=== PATIENT | female | born 1985 | race Caucasian/White ===

== ENCOUNTER 2020-07-26 13:07 | Outpatient (REF) | payer OTHER, SELFPAY ==
--- NOTE | 2020-07-26 11:00 | PAPFT_PTH ---
PATIENT: Page Cruz LOC: [facility] U#:[id number] AGE/SX: 35/F ROOM: RE07/26/[address]: MOHAMUD Strickland : 1985 BED: DIS: 07/26/2020 SPEC #: [id number] RECD: 07/26/20 17:57 STATUS: JEAN PAUL RERolando #: [id number] FLETCHER: 07/26/20 11:[address]: Concepción Nieto DEPT: [facility] Cytology RECD BY: Hillary Medina ENTERED: 07/26/20 17:58 SP TYPE: PAPFT OTHR DR: Neeraj Warren Tissues: 1 - CX/ENDOCX FOR PAP SMEARS Procedures: PAP THIN PREP/UVM Screening HPV DNA PROBE Comments: [id number]
--- OUTSIDE RECORDS SUMMARY | 2020-07-26 13:12 | XMS_ITS | Encounter Summary ---
:1985 Author Care Team Providers Name Role Phone Neeraj Warren Primary Care Provider [phone] Km Vital MD General Surgeon [phone] Reason for Visit None recorded. Assessment and Plan 1. Achalasia of esophagus 35 female with fairly extensiv e history of achalasia. She has kind of lost follow-up with GI because she is done qu ite well for the last 3 years. Given the new onset of recurrent symptoms, I think it is reasonable to proceed with evaluation. We will plan for upper endoscopy with possi ble balloon dilation. Depending on the findings, I will consider ordering a bar ium swallow as well. It is unclear if the achalasia has worsened and is causing th e symptoms, or if the dilated esophageal sphincter is allowing for worsening refl ux. Patient does admit that her weight gain is probably contributing to her symptoms . She is probably correct. I encouraged her to continue with her diet plan. We will go ahead and get her scheduled for upper endoscopy with possible balloon dilation . We discussed the procedure in detail. She did express that in the past she struggl ed with conscious sedation procedures and has done much better with anesthesia. With t hat history, we will request that anesthesia provide sedation. Patient did have quest ions about the need to protect the airway and I suggested she discuss that with anesth esia. We discussed the procedure in detail. We discussed the risk of bleeding and es ophageal perforation. She signed informed consent here in the office. We will go a head and get her scheduled sometime next week. Thank you for the consultation. 2. Gastroesophageal reflux disea se without esophagitis Discussion Note: None recorded.Patient educational handouts: No information available. Plan of Care Reminders Provider Appointments Cpe 40 03/10/2021 Neeraj garza, PIERCING SPECIALIST 12:40PM Lab None ? ? recorded. Referral None ? ? recorded. Procedures None ? ? recorded. Surgeries None ? ? recorded. Imaging None ? ? recorded. Medications Name Start Date ? ? Carafate 100 mg/mL oral suspension ? Take 10 mL 4 times a day by oral route as needed. intrauterine device (IUD) ? ketorolac 60 mg/2 mL intramuscular solution ? Inject 2 mL every day by intramuscular route for 1 da y. nexium 40 mg pack ? Nexium Packet 40 mg granules delayed release for susp ? Twice daily ondansetron 4 mg disintegrating tablet ? Place 1 tablet every 6 hours by translingual route as needed. zolpidem 10 mg tablet ? TAKE ONE TABLET BY MOUTH AT BEDTIME zolpidem tartrate 10 mg tabs ? Medications Administered None recorded. Vitals Height Weight BMI Blood Pressure 5 ft 10 in 247 lbs 6.4 oz 35.5 kg/m2 118/84 mm[Hg] Results Lab Results None recorded. Allergies Code Code System Name Reaction Severity Onset 2670 RxNorm Codeine Hives Moderate to ? Severe 9628799 RxNorm Kiwi Facial Swelling Severe ? Penicillins Hives Moderate to ? Severe Problems Name Status Onset Date Source ? Intermittent Palpitations Active 09/02/2017 ? Laceration of Finger of Right Hand Active 10/15/2017 ? Lumbosacral Radiculopathy Active 02/26/2020 ? Achalasia Active 05/29/2020 ? Localized Adiposity Active ? History Insomnia Active ? History Hernia of Abdominal Cavity Active ? Histo ry Urinary Tract Infectious Disease Active ? History On Examination - Breast Lump-lower Active ? History Out-quad Acute Vaginitis Active ? History Hip Pain Active ? History Disorder of Intervertebral Disc of Active ? History Thoracic Spine Backache Active ? History Dizziness and Giddiness Active ? History Palpitations Active ? History Dysphagia Active ? History Genitourinary Symptoms Active ? History Adult Health Examination Active ? History History and Physical Examination, Active ? History Pre-employment Tuberculosis Screening Active ? History Venereal Disease Screening Active ? Histo ry Digestive System Finding Active ? History Finding of Esophagus Active ? History Juliana Infection of Genital Region Active ? History Procedure by Method Active ? History Procedures Date Name Performed by ? 06/03/2020 Endoscopy of Upper Gastrointestinal Info rmation not available Tract and Dilation of Esophageal Stricture 06/03/2020 EGD/Endoscopy Information not avai lable Notes: achalasia strictur e at GE junction w/ ballon dilation to 18 mm, gastric polyps, gastritis, esophagitis. 03/05/10 dilation in esophagus.12/16/16 achalasia 03/27/2010 03/05/2010 esophagus appears aperistaltic and dilated. 09/19/08 dilated esophagus with no evidence of peristalsis. 03/01/2014 Laminotomy Single Lumbar Information not available 03/01/2008 Cholecystectomy Information not avai lable ? Laparoscopic Sleeve Gastrectomy Informat ion not available ? Delivery Information not avai lable Vaccine List Vaccine Type Hep B, adult 11/26/2015?1 mL influenza, injectable, quadrivalent 11/30/2017 11/30/2019 influenza, injectable, quadrivalent, pre servative free 12/15/2016 influenza, seasonal, injectable 12/04/2015?0.5 mL Tdap 10/13/2017?0.5 mL Notes: Hepatitis B titer positiv e 01/02/2016; MMRV titers positive 11/12/2015 Social History Tobacco Smoking Status Former Smoker Notes: smoked for approx 10 years Illicit drug use? N Alcohol intake Occasional Use IV drugs? N Smokeless Tobacco Status Never used smokeless tobacco Most Recent Tobacco Use 01/13/2018 Screening E-cigarette/Vape Status Never used electronic cigarettes Advance directive N Currently or any N chance of current ? Any marijuana use? N Last menstrual period? 04/30/2020 Any Vapor tobacco use? N Tobacco smoke exposure N Functional Status Unknown. Past Encounters 05/30/2020 Achalasia of Esophagus; Gastroesophageal Reflux Disease without Esophagitis Km Vital MD: [address] [place] [address] Dr thomas, [place] [address], Ph. History of Present Illness Note: <p>Patient is a 35-year-old woman who was sent over after recent emergency room visit. She is a pretty significant history of esophageal dysfunction. About 10 years ago she was diagnosed with achalasia. At the time she weighed about 400 pounds. She underwent a combined sleeve gastrectomy and Heller myotomy. She persistently had difficulty eating on and off for many years. For a few months after the surgery she actually had a Dobbhoff feeding tube. Her weight got down to 150 pounds. In 2018 she had upper endoscopy with dilation. For whatever reason the seem to make a big difference and she has been able to eat pretty freely since then. Unfortunately she has gained almost 100 pounds. She does report that in the last few weeks she is managed to lose 12 pounds and is encouraged by this. Also over the last few weeks to months she has had recurrence of some of her symptoms. She is having a lot of epigastric pain, particularly with swallowing or eating. She feels like she is having saliva and gastric juices pooling in her esophagus. Some nights she actually has to cough stuff up. She feelslike she is getting food sitting in the distal esophagus again. She is sticking to a liquid and softdiet and that makes things tolerable. She has not had to regurgitate or vomit any undigested food asof yet. She has not had upper endoscopy since 2018. In our system it seems that she had a barium swallow study in 2011 and 2017.
</p> Review of Systems None recorded. Physical Exam ? [facility] General Surgery Exam Reported By: Patient Constitutional: General Appearance: healthy- appearing, obese. Level of Distress: no acute distress. Ambulation: ambulating normally Head: Head: normocephalic, atrauma tic Neck: Neck: supple, no masses Cardiovascular: Heart Auscultation: regular rate and rhythm Lungs: Respiratory effort: no dyspn ea, no use of accessory muscles. Auscultation: breath sounds normal Abdomen: Inspection and Palpation: so ft, non-distended, no tenderness Musculoskeletal:: Extremities: no edema. Joint s, Bones, and Muscles: movement of all extremities Neurologic: Cranial Nerves: grossly inta ct Psychiatric: Mental Status: active and al ert, normal mood, normal affect
--- OUTSIDE RECORDS SUMMARY | 2020-07-26 13:12 | XMS_ITS ---
:1985 Author Care Team Providers Name Role Phone REINA DICKEY Primary Care Provider [phone] KM ESCOBAR MD General Surgeon [phone] Allergies Code Code System Name Reaction Severity Status Onset 2670 RxNorm Codeine Hives Moderate to Active ? Severe 5138041 RxNorm Kiwi Facial Severe Active ? Swelling Penicillins Hives Moderate to Active ? Severe Medications Name Status Start Date Stop Date ? ? B Complex 100 100 mg-2 mg-100 mg-2mg-2mg/mL injectable solut ion Completed 09/12/2015 09/28/2016 1 (one) Injectable Injectable: weekly boric acid (bulk) powder Completed 08/12/2016 017 600 milligram milligram: nightly for 14 days then as needed jessica ly Carafate 100 mg/mL oral suspension Active ? Not available Take 10 mL 4 times a day by oral route as needed. Celebrex 100 mg capsule Completed 05/30/2013 04/06/19 15 2 (two) Capsule: qam - every morning clindamycin HCl 300 mg capsule Completed ? 0 08/15/2019 cyclobenzaprine 10 mg tablet Completed 05/29/2013 1 (one) Tablet Tablet: qhs - at bedtime cyclobenzaprine 5 mg tablet Completed ? 12/01 Diflucan 150 mg tablet Completed 07/14/2016 7 1 (one) Tablet: weekly ferrous sulfate 325 mg (65 mg iron) tablet,delayed release Compl eted 08/09/2013 04/06/2014 1 (one) Tablet Tablet DR: bid - twice daily intrauterine device (IUD) Active ? Not av ailable Iron (ferrous sulfate) 325 mg (65 mg iron) tablet Completed 05/12/2013 05/12/2013 1 Tablet: bid - twice daily ketorolac 60 mg/2 mL intramuscular solution Active ? Not available Inject 2 mL every day by intramuscular route for 1 day. Lidocaine Viscous 2 % mucosal solution Completed 4 04/06/2014 10 ml : every 4 hours as needed Macrobid 100 mg capsule Completed 10/25/2014 10/26/19 15 1 (one) Capsule: bid - twice daily nexium 40 mg pack Active ? Not available Nexium Packet 40 mg granules Active ? Not available delayed release for susp nitroglycerin 0.4 mg Active ? Not availab le sublingual tablet omeprazole 40 mg capsule,delayed release Completed 014 04/06/[address]: bid - twice daily ondansetron 4 mg disintegrating tablet Active ? Not available Place 1 tablet every 6 hours by translingual route as needed. Percocet 10 mg-325 mg tablet Completed 06/12/201409/2014 1 Tablet Tablet: every 6 hours as needed for pain Percocet 5 mg-325 mg tablet Completed 04/19/201404/29 1 (one) Tablet: oral four times per day as needed for pain phenazopyridine 200 mg tablet Completed ? TAKE ONE TABLET BY MOUTH THREE TIMES A DAY FOR 2 DAYS prednisone 10 mg tablet Completed ? 03/08/19 21 TAKE 5 TABLETS ORALLY FOR 1 DAY 4 TABL ETS FOR 1 DAY 3 TABLETS FOR 1 DAY 2 TABLETS FOR 1 DAY 1 TABLET FOR 1 DAY sulfamethoxazole 200 Active ? Not availab le mg-trimethoprim 40 mg/5 mL oral suspension sulfamethoxazole 800 mg-trimethoprim 160 mg tablet Completed ? 02/26/2020 TAKE ONE TABLET BY MOUTH TWICE A DAY FOR 5 DAYS sulfamethoxazole/trimethoprim Completed ? ds 800-160 mg tabs trazodone 50 mg tablet Completed 08/14/2014 6 1 (one) Tablet: at bedtime as needed for sleep Ultram 50 mg tablet Completed 08/25/2013 10/26/2013 1 (one) Tablet Tablet: every six hours as needed for breakthrou gh pain. Venofer 200 mg iron/10 mL intravenous solution Completed 0 09/12/2015 07/14/2016 1 (one) Solution Solution: weekly zolpidem 10 mg tablet Active ? Not availa ble TAKE ONE TABLET BY MOUTH AT BEDTIME zolpidem tartrate 10 mg tabs Active ? Not available Problems Name Status Onset Date Source ? Intermittent Palpitations Active 09/02/2017 ? Laceration of Finger of Right Hand Active 10/15/2017 ? Lumbosacral Radiculopathy Active 02/26/2020 ? Achalasia Active 05/29/2020 ? Localized Adiposity Active ? History Iron Deficiency Anemia Unknown ? History Insomnia Active ? History Hernia [...] available ? Delivery Information not avai lable 09/02/2017 Electrocardiogram [facility] [address] [place] [address] (Work Place) 09/02/2017 Electrocardiogram [facility] (Internal) [address] [place] [address] (Work Place) 08/15/2019 XR, Lumbosacral Spine, 2 or 3 View [facility] Radiology (Internal) [address] [place] [address] (Work Place) 03/08/2020 MRI, Lumbar Spine, W/o Contrast [facility] (Imaging) [address] [place] [address] (Work Place) 06/06/2020 Barium Swallow Study [facility] (Imaging) [address] [place] [address] (Work Place) Results Lab Results Date Name Specimen Result Interpretation Description Value Range Status Address ? 06/03/2020 Pathology Study TISS ? Report (see below) ? Final [facility] (Internal) : [address] 05/29/2020 CBC W/ Auto BLD ? Wbc 8.5 10*3/uL 5.0-10 Fin al [place] Diff .0 [facility] 10*3/u Hospital L ab L (Internal) : [address] t ? ? BLD ? Rbc 4.77 4.10-5 Final [place] 10*6/uL .30 [facility] 10*6/u Hospital L ab L (Internal) : [address] ? ? BLD Low Hgb 10.5 g/dL 12.0-1 Final [place] 6.0 Country g/dL Hospital L ab (Internal) : [address] t ? ? BLD Low Hct 34.5 % 37.0-4 Final [place] 7.0 % [facility] (Internal) : [address] ? ? BLD Low Mcv 72.3 fL 80.0-9 Final [place] 6.0 fL [facility] (Internal) : [address] t ? ? BLD Low Mch 22.0 pg 26.0-3 Final [place] 2.0 pg [facility] L [facility] (Internal) : [address] t ? ? BLD Low Mchc 30.4 g/dL 31.0-3 Final [place] 5.0 [facility] g/dL Hospital L ab (Internal) : [address] ? ? BLD High Rdw 16.0 % 11.5-1 Final [place] 4.5 % [facility] (Internal) : [address] ? ? BLD ? Plt 354 10*3/uL 130-45 Final [place] 0 [facility] 10*3/u Hospital L ab L (Internal) : [address] ? ? BLD ? Anc 5.57 ? Final [facility] 10*3/uL [facility] (Internal[facility] : [address] ? ? BLD ? Nlr 2.99 0.00-3 Final [facility] .20 [facility] (Internal) : [address] ? ? BLD ? Neutro 65.6 % 40.0-7 Final [facility] 5.0 % [facility] (Internal) : [address], [place] ? ? BLD ? Lymph 21.9 % 20.0-5 Final [facility] 0.0 % [facility] (Internal) : [address] ? ? BLD ? [place] 8.1 % 2.0-10 Final [facility] .0 % [facility] (Internal) : [address], [place] ? ? BLD ? Eos 3.5 % 1.0-6. Final [facility] 0 % [facility] (Internal[facility] : [address] ? ? BLD ? Baso 0.7 % 0.0-1. Final [facility] 0 % [facility] (Internal) : [address] ? ? BLD ? Ig 0.2 % 0.0-0. Final [facility] 9 % [facility] (Internal) : [address] t 05/29/2020 CMP, Serum or S ? g/r 91 mg/dL 74-106 Olga l [facility] Plasma mg/dL [facility] (Internal[facility] : [address] ? ? S ? Bun 9 mg/dL 7-17 Final [facility] mg/dL [facility] (Internal) : [address] ? ? S ? Crea 0.70 mg/dL 0.52-1 Final [facility] .04 [facility] mg/dL Hospital L ab (Internal) : [address] ? ? S ? Ca 9.5 mg/dL 8.4-10 Final [facility] .2 [facility] mg/dL Hospital L ab (Internal) : [address] ? ? S ? Na 139 mmol/L 137-14 Final [facility] 5 [facility] mmol/L Hospital L ab (Internal) : [address] ? ? S ? K 3.9 mmol/L 3.5-5. Final [place] 1 [facility] mmol/L Hospital L ab (Internal) : [address] t ? ? S ? Cl 103 mmol/L 98-107 Final [place] mmol/L [facility] (Internal) : [address] t ? ? S ? Tco2 25.0 mmol/L 22.0-3 Final [place] 0.0 [facility] mmol/L Hospital L ab (Internal) : [address] t ? ? S High Tp 8.3 g/dL 6.3-8. Final [place] 2 g/dL [facility] L ab (Internal) : [address] t ? ? S ? Alb 4.5 g/dL 3.5-5. Final [place] 0 g/dL [facility] L ab (Internal) : [address] t ? ? S ? Tbil 1.3 mg/dL 0.2-1. Final [place] 3 [facility] mg/dL Hospital L ab (Internal) : [address] t ? ? S ? Alp 75 U/L 50-136 Final [place] U/L [facility] L ab (Internal) : [address] t ? ? S ? Alt (Sgpt) 15 U/L 9-52 Final [place] U/[facility] L ab (Internal) : [address] t ? ? S ? Ast (Sgot) 31 U/L 14-36 Final [place] U/[facility] L ab (Internal) : [address] 05/29/2020 RBC Morphology, BLD ? Aniso small ? Olga l [place] Blood [facility] L ab (Internal) : [address] t ? ? BLD ? Hypo occasional ? Final [facility] L ab (Internal) : [address] t ? ? BLD ? Micro occasional ? Final [facility] L ab (Internal) : [address] t ? ? BLD ? Polychrom rare ? Final [facility] L ab (Internal) : [address] 05/29/2020 Troponin I, S ? Trop <0.06 NG/mL 0.00-0 Fin al [place] Serum or Plasma .06 C ountry NG/mL Hospital L ab (Internal) : [address] 12/04/2018 TIBC (Total SERUM - Tibc 353 ug/dL 265-49 Final [place] Iron-binding 7 Coun try Capacity), ug/dL Hospit al Lab Serum (Internal) : [address] [facility] 12/04/2018 Iron, Serum SERUM Low Iron <15 ug/dL 37-170 Final [place] ug/dL [facility] (Internal) : [address] [facility] 12/04/2018 Ferritin, Serum S Low Ferr 5 NG/mL 11-264 Fin al [facility] or Plasma NG/mL [facility] L [facility] (Internal) : [address] [facility] 12/04/2018 CMP, Serum or S - g/r 80 mg/dL 74-106 Olga l [place] Plasma mg/dL [facility] (Internal) : [address] ? ? S High Bun 18 mg/dL 7-17 Final [place] mg/dL [facility] (Internal) : [address] t ? ? S - Crea 0.80 mg/dL 0.52-1 Final North .04 [facility] mg/dL Hospital L ab (Internal) : [address] t ? ? S - Ca 9.4 mg/dL 8.4-10 Final [facility] .2 [facility] mg/dL Hospital L ab (Internal) : [address] t ? ? S - Na 140 mmol/L 137-14 Final [facility] 5 [facility] mmol/L Hospital L ab (Internal) : [address] t ? ? S - K 4.1 mmol/L 3.5-5. Final [facility] 1 [facility] mmol/L Hospital L ab (Internal) : [address] t ? ? S - Cl 103 mmol/L 98-107 Final [place] mmol/L [facility] (Internal) : [address] t ? ? S - Tco2 27.0 mmol/L 22.0-3 Final [place] 0.0 Country mmol/L Hospital L ab (Internal) : [address] ? ? S - Tp 7.4 g/dL 6.3-8. Final [place] 2 g/dL [facility] L [facility] (Internal) : [address] ? ? S - Alb 3.8 g/dL 3.5-5. Final [place] 0 g/dL [facility] L [facility] (Internal) : [address] ? ? S - Tbil 0.4 mg/dL 0.2-1. Final [place] 3 [facility] mg/dL Hospital L ab (Internal) : [address] ? ? S - Alp 81 U/L 50-136 Final [place] U/L [facility] L [facility] (Internal) : [address] ? ? S - Alt (Sgpt) 13 U/L 9-52 Final [place] U/L [facility] (Internal) : [address] ? ? S - Ast (Sgot) 23 U/L 14-36 Final [place] U/L [facility] (Internal) : [address] 12/04/2018 CBC W/ Auto BLD - Wbc 6.6 10*3/uL 5.0-10 Fin al [place] Diff .0 [facility] 10*3/u Hospital L ab L (Internal) : [address] ? ? BLD - Rbc 4.24 4.10-5 Final [place] 10*6/uL .30 [facility] 10*6/u Hospital L ab L (Internal) : [address] ? ? BLD Low Hgb 11.7 g/dL 12.0-1 Final [place] 6.0 Country g/dL Hospital L ab (Internal) : [address] ? ? BLD - Hct 37.6 % 37.0-4 Final [place] 7.0 % [facility] L [facility] (Internal) : [address] ? ? BLD - Mcv 88.7 fL 80.0-9 Final [place] 6.0 fL [facility] L [facility] (Internal) : [address] ? ? BLD - Mch 27.6 pg 26.0-3 Final [place] 2.0 pg [facility] L [facility] (Internal) : [address] micha ? ? BLD - Mchc 31.1 g/dL 31.0-3 Final [place] 5.0 Country g/dL Hospital L ab (Internal) : [address] t ? ? BLD - Rdw 14.4 % 11.5-1 Final [facility] 4.5 % [facility] L [facility] (Internal) : [address] ? ? BLD - Plt 216 10*3/uL 130-45 Final [facility] 0 [facility] 10*3/u Hospital L ab L (Internal) : [address] ? ? BLD - Anc 3.80 ? Final [facility] 10*3/uL [facility] L [facility] (Internal) : [address] ? ? BLD - Neutro 57.5 % 40.0-7 Final [facility] 5.0 % [facility] L [facility] (Internal) : [address] ? ? BLD - Lymph 24.7 % 20.0-5 Final [facility] 0.0 % [facility] L [facility] (Internal) : [address] ? ? BLD High [place] 10.8 % 2.0-10 Final North .0 % [facility] L [facility] (Internal) : [address] ? ? BLD - Eos 5.8 % 1.0-6. Final [facility] 0 % [facility] L [facility] (Internal) : [address] ? ? BLD - Baso 0.9 % 0.0-1. Final [facility] 0 % [facility] L [facility] (Internal) : [address] ? ? BLD - Ig 0.3 % 0.0-0. Final [facility] 9 % [facility] L [facility] (Internal) : [address] 08/10/2018 Ferritin, Serum S Low Ferr 5 NG/mL 11-264 Fin al [facility] or Plasma NG/mL [facility] L [facility] (Internal) : [address] 08/10/2018 TIBC (Total SERUM - Tibc 385 ug/dL 265-49 Final [place] Iron-binding 7 Coun try Capacity), ug/dL Hospit al Lab Serum (Internal) : [address] 08/10/2018 CMP, Serum or S - g/r 91 mg/dL 74-106 Olga l [facility] Plasma mg/dL [facility] L [facility] (Internal) : [address] ? ? S - Bun 15 mg/dL 7-17 Final [place] mg/dL [facility] L [facility] (Internal) : [address] ? ? S - Crea 0.80 mg/dL 0.52-1 Final North .04 [facility] mg/dL Hospital L ab (Internal) : [address] ? ? S - Ca 9.2 mg/dL 8.4-10 Final North .2 Country mg/dL Hospital L ab (Internal) : [address] ? ? S Low Na 135 mmol/L 137-14 Final [facility] 5 [facility] mmol/L Hospital L ab (Internal) : [address] ? ? S - K 4.2 mmol/L 3.5-5. Final [facility] 1 [facility] mmol/L Hospital L ab (Internal) : [address] ? ? S - Cl 102 mmol/L 98-107 Final [place] mmol/L [facility] L [facility] (Internal) : [address] ? ? S - Tco2 29.0 mmol/L 22.0-3 Final North 0.0 [facility] mmol/L Hospital L ab (Internal) : [address] ? ? S - Tp 7.6 g/dL 6.3-8. Final [facility] 2 g/dL [facility] L [facility] (Internal) : [address] ? ? S - Alb 4.1 g/dL 3.5-5. Final [facility] 0 g/dL [facility] L [facility] (Internal) : [address] ? ? S - Tbil 0.8 mg/dL 0.2-1. Final [facility] 3 [facility] mg/dL Hospital L ab (Internal) : [address] ? ? S - Alp 59 U/L 50-136 Final [facility] U/L [facility] L [facility] (Internal) : [address] ? ? S - Alt (Sgpt) 11 U/L 9-52 Final [facility] U/L [facility] L [facility] (Internal) : [address] ? ? S - Ast (Sgot) 30 U/L 14-36 Final [facility] U/L [facility] (Internal) : [address] 08/10/2018 Iron, Serum SERUM Low Iron 25 ug/dL 37-170 Final [facility] ug/dL [facility] L [facility] (Internal) : [address] 08/10/2018 CBC W/ Auto BLD - Wbc 5.3 10*3/uL 5.0-10 Fin al [facility] Diff .0 [facility] 10*3/u Hospital L ab L (Internal) : [address] ? ? BLD - Rbc 4.37 4.10-5 Final North 10*6/uL .30 [facility] 10*6/u Hospital L ab L (Internal) : [address], [address] t ? ? BLD Low Hgb 11.0 g/dL 12.0-1 Final [place] 6.0 Country g/dL Hospital L ab (Internal) : [address] ? ? BLD Low Hct 36.1 % 37.0-4 Final [facility] 7.0 % [facility] L [facility] (Internal) : [address] ? ? BLD - Mcv 82.6 fL 80.0-9 Final [place] 6.0 fL [facility] L [facility] (Internal) : [address] ? ? BLD Low Mch 25.2 pg 26.0-3 Final [place] 2.0 pg [facility] L [facility] (Internal) : [address] ? ? BLD Low Mchc 30.5 g/dL 31.0-3 Final [facility] 5.0 Country g/dL Hospital L ab (Internal) : [address] ? ? BLD - Rdw 14.5 % 11.5-1 Final [place] 4.5 % [facility] L [facility] (Internal) : [address], [address] ? ? BLD - Plt 247 10*3/uL 130-45 Final [facility] 0 [facility] 10*3/u Hospital L ab L (Internal) : [address] ? ? BLD - Anc 2.98 ? Final [facility] 10*3/uL [facility] L [facility] (Internal) : [address] ? ? BLD - Neutro 55.9 % 40.0-7 Final [place] 5.0 % [facility] L [facility] (Internal) : [address] micha ? ? BLD - Lymph 26.5 % 20.0-5 Final [facility] 0.0 % [facility] L [facility] (Internal) : [address] ? ? BLD High [place] 11.6 % 2.0-10 Final North .0 % [facility] L [facility] (Internal) : [address] ? ? BLD - Eos 4.7 % 1.0-6. Final [facility] 0 % [facility] L [facility] (Internal) : [address] ? ? BLD High Baso 1.1 % 0.0-1. Final [facility] 0 % [facility] L [facility] (Internal) : [address] ? ? BLD - Ig 0.2 % 0.0-0. Final [facility] 9 % [facility] L [facility] (Internal) : [address] 03/04/2018 Methylmalonate, S - Methylmalo 0.21 <=0.40 Final [place] QN, Serum or tu Acid, nmol/mL nmol/m Country Plasma Qn, S L Hospital L ab (Internal) : [address] 03/02/2018 CBC W/ Auto BLD - Wbc 7.7 10*3/uL 5.0-10 Fin al [place] Diff .0 Country 10*3/u Hospital L ab L (Internal) : [address] ? ? BLD - Rbc 4.55 4.10-5 Final [place] 10*6/uL .30 Country 10*6/u Hospital L ab L (Internal) : [address] ? ? BLD Low Hgb 11.4 g/dL 12.0-1 Final [place] 6.0 Country g/dL Hospital L ab (Internal) : [address] ? ? BLD - Hct 37.8 % 37.0-4 Final [place] 7.0 % [facility] L ab (Internal) : [address] ? ? BLD - Mcv 83.1 fL 80.0-9 Final [place] 6.0 fL [facility] L ab (Internal) : [address] ? ? BLD Low Mch 25.1 pg 26.0-3 Final [place] 2.0 pg [facility] L ab (Internal) : [address] ? ? BLD Low Mchc 30.2 g/dL 31.0-3 Final North 5.0 Country g/dL Hospital L ab (Internal) : [address] ? ? BLD - Rdw 13.8 % 11.5-1 Final [facility] 4.5 % [facility] L [facility] (Internal) : [address] ? ? BLD - Plt 297 10*3/uL 130-45 Final North 0 [facility] 10*3/u Hospital L ab L (Internal) : [address] ? ? BLD - Anc 4.96 ? Final [facility] 10*3/uL [facility] L ab (Internal) : [address] ? ? BLD - Neutro 64.1 % 40.0-7 Final [facility] 5.0 % [facility] L [facility] (Internal) : [address] t ? ? BLD - Lymph 23.1 % 20.0-5 Final [facility] 0.0 % [facility] L [facility] (Internal) : [address] ? ? BLD - [place] 8.7 % 2.0-10 Final North .0 % [facility] L [facility] (Internal) : [address], [address] [address] ? ? BLD - Eos 3.0 % 1.0-6. Final [facility] 0 % [facility] L [facility] (Internal) : [address], [address] [address] ? ? BLD - Baso 0.8 % 0.0-1. Final [facility] 0 % [facility] L ab (Internal) : [address] ? ? BLD - Ig 0.3 % 0.0-0. Final [facility] 9 % [facility] L [facility] (Internal) : [address] t 03/02/2018 CMP, Serum or S - g/r 97 mg/dL 74-106 Olga l [facility] Plasma mg/dL [facility] L [facility] (Internal) : [address] ? ? S - Bun 14 mg/dL 7-17 Final [facility] mg/dL [facility] L [facility] (Internal) : [address] ? ? S - Crea 0.90 mg/dL 0.52-1 Final North .04 [facility] mg/dL Hospital L ab (Internal) : [address] ? ? S - Ca 9.4 mg/dL 8.4-10 Final North .2 Country mg/dL Hospital L ab (Internal) : [address] ? ? S - Na 141 mmol/L 137-14 Final [facility] 5 [facility] mmol/L Hospital L ab (Internal) : [address] ? ? S - K 4.0 mmol/L 3.5-5. Final [place] 1 [facility] mmol/L Hospital L ab (Internal) : [address] ? ? S - Cl 104 mmol/L 98-107 Final [place] mmol/L [facility] L ab (Internal) : [address] ? ? S - Tco2 27.0 mmol/L 22.0-3 Final North 0.0 Country mmol/L Hospital L ab (Internal) : [address] ? ? S - Tp 8.1 g/dL 6.3-8. Final [facility] 2 g/dL [facility] L ab (Internal) : [address] ? ? S - Alb 4.3 g/dL 3.5-5. Final [facility] 0 g/dL [facility] L ab (Internal) : [address] ? ? S - Tbil 0.9 mg/dL 0.2-1. Final [facility] 3 [facility] mg/dL Hospital L ab (Internal) : [address] ? ? S - Alp 77 U/L 50-136 Final [place] U/L [facility] L [facility] (Internal) : [address] ? ? S - Alt (Sgpt) 17 U/L 9-52 Final [place] U/L [facility] L ab (Internal) : [address] ? ? S - Ast (Sgot) 33 U/L 14-36 Final [facility] U/L [facility] L [facility] (Internal) : [address] 03/02/2018 Iron, Serum SERUM Low Iron 23 ug/dL 37-170 Final [place] ug/dL [facility] L ab (Internal) : [address] 03/02/2018 TIBC (Total SERUM - Tibc 400 ug/dL 265-49 Final [place] Iron-binding 7 Coun try Capacity), ug/dL Hospit al Lab Serum (Internal) : [address] 03/02/2018 Ferritin, Serum S Low Ferr 4 NG/mL 11-264 Fin al [facility] or Plasma NG/mL [facility] L [facility] (Internal) : [address] 03/02/2018 Urinalysis, UR - UA-color yellow pale Final [place] Complete yellow [facility] L [facility] (Internal) : [address] ? ? UR - UA-appear clear clear Final [facility] L ab (Internal) : [address] ? ? UR - UA-spec 1.025 1.003- Final [place] Grav 1.035 [facility] L [facility] (Internal) : [address] ? ? UR - UA-pH 6.0 [pH] 4.6-8. Final [place] 0 [pH] [facility] (Internal) : [address] ? ? UR - UA-leuk negative negati Final [facility] L ab (Internal) : [address] ? ? UR - UA-nitrite negative negati Final [facility] L ab (Internal) : [address] ? ? UR - UA-prot negative negati Final [facility] L ab (Internal) : [address] ? ? UR - UA-gluc negative negati Final [facility] L ab (Internal) : [address] ? ? UR - UA-ketone negative negati Final [facility] L ab (Internal) : [address] ? ? UR - UA-urobil normal normal Final [facility] L ab (Internal) : [address] ? ? UR - UA-bili negative negati Final [facility] L ab (Internal) : [address] ? ? UR - UA-blood negative negati Final [facility] L ab (Internal) : [address] ? ? UR - UA-WBC 0-3 [hpf] 0-3 Final [place] [hpf] [facility] L ab (Internal) : [address] ? ? UR - UA-RBC 0-2 [hpf] 0-2 Final [place] [hpf] [facility] L ab (Internal) : [address] ? ? UR - UA-bacteri none seen none Final No rth a [hpf] seen Country [hpf] Hospital L ab (Internal) : [address] ? ? UR ABNORM UA-epithel few [hpf] none Final No rth AL ial seen Country [hpf] Hospital L ab (Internal) : [address] ? ? UR - UA-mucus none seen none Final Nort h [hpf] seen Country [hpf] Hospital L ab (Internal) : [address] 03/02/2018 Fecal Occult STL - Occ Bld negative negati Fin [facility] Blood, Stool ve Coun try Hospital L ab (Internal) : [address] 03/02/2018 Methylmalonate, S - Methylmalo tnp ? [facility] QN, Serum or tu Acid, C ountry Plasma Qn, S Hospital L ab (Internal) : [address] 03/02/2018 Homocysteine, - Homocystei 12 mcmol/L <=13 [facility] Moles/volume, ne, Total, (fasti Country Serum P ng) Hospital L ab mcmol/ (Internal) : L [address] 02/02/2018 Vitamin B1 BLD - Thiamin 88 nmol/L 70-180 [facility] (Thiamine), (Vitamin nmol/L Cou ntry Blood B1), Hospital Lab (Internal) : [address] 01/13/2018 CBC W/ Auto BLD - Wbc 7.6 10*3/uL 5.0-10 [facility] Diff .0 Country 10*3/u Hospital L ab L (Internal) : [address] ? ? BLD - Rbc 4.42 4.10-5 [facility] 10*6/uL .30 Country 10*6/u Hospital L ab L (Internal) : [address] ? ? BLD Low Hgb 11.5 g/dL 12.0-1 [facility] 6.0 Country g/dL Hospital L ab (Internal) : [address] ? ? BLD - Hct 37.4 % 37.0-4 [facility] 7.0 % [facility] (Internal) : [address] ? ? BLD - Mcv 84.6 fL 80.0-9 [facility] [place] 6.0 fL [facility] (Internal) : [address] ? ? BLD - Mch 26.0 pg 26.0-3 Final [place] 2.0 pg [facility] (Internal) : [address] ? ? BLD Low Mchc 30.7 g/dL 31.0-3 Final [place] 5.0 [facility] g/dL [facility] L [facility] (Internal) : [address] ? ? BLD - Rdw 13.9 % 11.5-1 Final [place] 4.5 % [facility] ([facility]) : [address] ? ? BLD - Plt 289 10*3/uL 130-45 Final [place] 0 [facility] 10*3/u Hospital L ab L (Internal) : [address] ? ? BLD - Anc 4.26 ? Final [place] 10*3/uL [facility] (Internal) : [address] ? ? BLD - Neutro 56.3 % 40.0-7 Final [place] 5.0 % [facility] ([facility]) : [address] ? ? BLD - Lymph 26.2 % 20.0-5 Final [facility] 0.0 % [facility] ([facility]) : [address] ? ? BLD High [place] 10.7 % 2.0-10 Final [facility] .0 % [facility] (Internal) : [address] ? ? BLD - Eos 5.7 % 1.0-6. Final [facility] 0 % [facility] (Internal) : [address] ? ? BLD - Baso 0.8 % 0.0-1. Final [facility] 0 % [facility] ([facility]) : [address] ? ? BLD - Ig 0.3 % 0.0-0. Final [place] 9 % [facility] (Internal) : [address] 01/13/2018 Iron, Serum SERUM - Iron 106 ug/dL 37-170 Final [facility] ug/dL [facility] : [address] [facility] 01/13/2018 Vitamin B12, S - Vit B12 428.0 pg/mL 239.0- Final [place] Serum 931.0 [facility] pg/mL Hospital L ab (Internal) : [address] [place] [facility] 01/13/2018 Folate, Serum S - Folate 9.82 NG/mL 2.76-2 F inal North 0.00 [facility] NG/mL Hospital L ab (Internal) : [address] [place] [facility] 01/13/2018 Ferritin, Serum S Low Ferr 6 NG/mL 11-264 Fin al [place] or Plasma NG/mL [facility] : [address] [place] [facility] 09/03/2017 BMP, Serum or S High g/r 109 mg/dL 74-106 Fin al [place] Plasma mg/dL [facility] (Internal) : [address] [place] [address] ? ? S - Bun 16 mg/dL 7-17 Final [place] mg/dL [facility] (Internal) : [address] ? ? S - Crea 0.80 mg/dL 0.52-1 Final [place] .04 [facility] mg/dL Hospital L ab (Internal) : [address] [place] [address] ? ? S - Ca 8.9 mg/dL 8.4-10 Final [place] .2 [facility] mg/dL Hospital L ab (Internal) : [address] ? ? S Low Na 136 mmol/L 137-14 Final [place] 5 [facility] mmol/L Hospital L ab (Internal) : [address] ? ? S - K 3.8 mmol/L 3.5-5. Final [place] 1 [facility] mmol/L Hospital L ab (Internal) : [address] [place] [address] ? ? S - Cl 105 mmol/L 98-107 Final [facility] mmol/L [facility] ([facility] : [address] micha ? ? S - Tco2 24.0 mmol/L 22.0-3 Final [place] 0.0 [facility] mmol/L Hospital L ab (Internal) : [address] [place] [address] 09/03/2017 TSH, Serum or S - Tsh 1.39 0.47-4 Final [place] Plasma u[IU]/mL .68 [facility] u[IU]/ Hospital L [facility] mL (Internal[facility] : [address] [facility] 09/02/2017 Electrocardiogr ? No ? ? ? am observation recorded. 07/30/2017 Neutrophil BLD - Anc-manual 3.39 ? Olga Ledezma Count, Absolute 10*3/uL [facility] (Anc), Blood Hosp ital Lab (Internal) : [address] [place] [facility] 07/30/2017 Ferritin, Serum S Low Ferr 5 NG/mL 11-264 Fin [facility] or Plasma NG/mL [facility] (Internal) : [address] [place] [facility] 07/30/2017 Folate, Serum S - Folate 8.10 NG/mL 2.76-2 F inal [place] 0.00 [facility] NG/mL Hospital L ab (Internal) : [address] [place] [facility] 07/30/2017 Vitamin B12, S - Vit B12 307.0 pg/mL 239.0- Final [place] Serum 931.0 [facility] pg/mL Hospital L ab (Internal) : [address] [place] [facility] 05/20/2017 Culture, Urine UR ? Final microbiolog ? Final [facility] y results [facility] (Internal) : [address] [place] [facility] 05/20/2017 sensitivities[I MISC ? Sens* ? ? Olga Ledezma ] [facility] (Internal) : [address] [place] [facility] 05/20/2017 Urinalysis, UR ? UA-WBC 0-3 [hpf] 0-3 Olga Ledezma Microscopic [hpf] Count Hospital L ab (Internal) : [address] ? ? UR ? UA-RBC 0-2 [hpf] 0-2 Final [place] [hpf] [facility] (Internal) : [address] t ? ? UR ABNORM UA-bacteri many [hpf] none Final N orth AL a seen [facility] [hpf] Hospital L ab (Internal) : [address] ? ? UR ? UA-epithel rare [hpf] none Final N orth ial seen Country [hpf] Hospital ab (Internal) : [address] ? ? UR ? UA-mucus none seen none Final Nort h [hpf] seen [facility] [hpf] Hospital ab (Internal) : [address] t 05/20/2017 Urinalysis, UR ? UA-color dark yellow pale Final [place] Dipstick, yellow [facility] Reflex Micro Hosp ital Lab (Internal) : [address] t ? ? UR ? UA-appear clear clear Final [facility] L ab (Internal) : [address] t ? ? UR ? UA-gluc negative negati Final [facility] L ab (Internal) : [address] t ? ? UR ? UA-bili negative negati Final [facility] L ab (Internal) : [address] t ? ? UR ? UA-ketone negative negati Final [facility] L ab (Internal) : [address] t ? ? UR ? UA-spec 1.020 1.003- Final [place] Grav 1.035 [facility] (Internal) : [address] t ? ? UR ? UA-blood negative negati Final [facility] L ab (Internal) : [address] t ? ? UR ? UA-pH 7.0 [pH] 4.6-8. Final [place] 0 [pH] [facility] (Internal) : [address] t ? ? UR ? UA-prot negative negati Final [facility] L ab (Internal) : [address] t ? ? UR ? UA-urobil normal normal Final [facility] L ab (Internal) : [address] t ? ? UR ABNORM UA-nitrite positive negati Final [facility] L ab (Internal) : [address] t ? ? UR ? UA-leuk negative negati Final [facility] L ab (Internal) : [address] t Past Encounters 05/30/2020 Achalasia of Esophagus; Gastroesophageal Reflux Disease without Esophagitis Km Escobar MD: [address] [place] [address], Ph. 03/08/2020 Lumbosacral Radiculopathy Reina Dickey NP: [address] [facility] [facility] [address] [place] [address], Ph. 02/26/2020 Lumbosacral Radiculopathy Gautam Deng PA: [address] [place] [phone], Ph. 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 08/15/2019 Backache Reina Dickey, [employer]OTHER[employer] INSTALLER: [address] [place] [phone], Ph. Social History Tobacco Smoking Status Former Smoker Notes: smoked for approx 10 years Vaccine List Vaccine Type Hep B, adult 11/26/2015?1 mL influenza, injectable, quadrivalent 11/30/2017 11/30/2019 influenza, injectable, quadrivalent, pre servative free 12/15/2016 influenza, seasonal, injectable 12/04/2015?0.5 mL Tdap 10/13/2017?0.5 mL Notes: Hepatitis B titer positiv e 01/02/2016; MMRV titers positive 11/12/2015 Plan of Care Reminders Provider Appointments None ? ? recorded. Lab None ? ? recorded. Referral None ? ? recorded. Procedures None ? ? recorded. Surgeries None ? ? recorded. Imaging None ? ? recorded. Vitals 05/30/2020 02:00PM Office 15 Height Weight BMI Blood Pressure 177.8 cm 112.22 kg 35.5 kg/m2 118/84 mm[Hg] 03/08/2020 01:40PM CPE 40 Height Blood Pressure 177.8 cm 137/80 mm[Hg] 02/26/2020 03:00PM Follow Up 20 Weight Blood Pressure 115.41 kg 130/92 mm[Hg] 12/29/2019 11:00AM Follow Up 20 Weight Blood Pressure 109.09 kg 112/72 mm[Hg] 08/15/2019 03:40PM Acute 40 Weight Blood Pressure 105.23 kg 122/84 mm[Hg] 01/13/2018 11:00AM Acute 20 Height Weight BMI Blood Pressure 176.53 cm 96.16 kg 30.9 kg/m2 124/72 mm[Hg] 09/02/2017 02:20PM Follow Up 20 Height Weight BMI Blood Pressure 176.53 cm 91.44 kg 29.3 kg/m2 114/70 mm[Hg] 07/30/2017 11:00AM Acute 40 Height Weight BMI Blood Pressure 176.53 cm 89.36 kg 28.7 kg/m2 110/64 mm[Hg] 05/20/2017 Height Weight Blood Pressure 176.53 cm 87.32 kg 108/80 mm[Hg] 03/05/2017 Height Weight Blood Pressure 176.53 cm 81.65 kg 136/82 mm[Hg] 01/25/2017 Weight Blood Pressure 79.38 kg 98/68 mm[Hg] 12/15/2016 Weight Blood Pressure 77.11 kg 112/78 mm[Hg] 09/28/2016 Weight Blood Pressure 73.8 kg 126/80 mm[Hg] 07/14/2016 Weight Blood Pressure 73.44 kg 102/62 mm[Hg] 11/12/2015 Height Weight Blood Pressure 176.53 cm (1) 70.44 kg (1) 98/64 mm[Hg] (2) 69.9 kg (2) 124/80 mm[Hg] 06/26/2015 Height Weight Blood Pressure 176.53 cm 72.57 kg 110/80 mm[Hg] 05/16/2015 Weight Blood Pressure 72.26 kg 118/78 mm[Hg] 08/06/2014 Height Weight Blood Pressure 175.9 cm 74.43 kg 110/80 mm[Hg] 05/22/2014 Height Weight Blood Pressure 173.99 cm 71.12 kg 108/58 mm[Hg] 04/06/2014 Height Weight Blood Pressure 173.36 cm 73.48 kg 106/68 mm[Hg] 10/26/2013 Weight Blood Pressure 79.83 kg 108/68 mm[Hg] 09/14/2013 Blood Pressure 112/78 mm[Hg] 08/09/2013 Weight Blood Pressure 82.7 kg 118/78 mm[Hg] 07/19/2013 Weight Blood Pressure 83.46 kg 112/82 mm[Hg] 05/29/2013 Weight Blood Pressure 86.86 kg 112/70 mm[Hg] 05/10/2013 Height Weight Blood Pressure 178 cm 84.1 kg 100/70 mm[Hg] 03/23/2013 Height Weight Blood Pressure 173.36 cm 83.78 kg 126/82 mm[Hg]
== END 2020-07-26 13:08 | disposition home or self-care (01) ==
LOC: LBN 13:07
PROVIDERS: PCP Nurse Practitioner Family; Visit Provider Nurse Practitioner Family
DX: Z12.4 Encounter for screening for malignant neoplasm of cervix (principal); Z11.51 Encounter for screening for human papillomavirus (HPV)
CPT/HCPCS: 88142; 87624

== ENCOUNTER 2023-11-25 15:42 | Outpatient (REF) | payer OTHER, SELFPAY | END 2023-11-25 15:43 | disposition home or self-care (01) | LOC: LBO 15:42 | PROVIDERS: PCP Nurse Practitioner Family; Visit Provider Physician Assistant | DX: J02.9 Acute pharyngitis, unspecified (principal) | CPT/HCPCS: 87070 ==

== ENCOUNTER 2024-03-19 08:13 | Emergency (ER) | payer OTHER, SELFPAY ==
[2024-03-19 08:22] VITALS: BP 157/103; PULSE 82; RESP 20; TEMP 36.3; O2SAT 99
--- NOTE | 2024-03-19 08:30 | DI.RAD_ITS ---
Exam(s) XR KNEE LT 3V AP,LAT,CELINE EXAM: XR KNEE LT 3V AP,LAT,CELINE CLINICAL HISTORY: medial trauma. TECHNIQUE: 2D digital imaging was performed. Three views. COMPARISON: No exams were available for comparison FINDINGS: BONES: No acute fracture is present. No bony destructive lesion is seen. JOINTS: The knee is normally aligned. No joint effusion is seen. The joint spaces are maintained. SOFT TISSUE: Normal. IMPRESSION: Normal radiographs of the left knee. DATA REPOSITORY: RADIATION DOSE DELIVERED:
--- NOTE | 2024-03-19 08:32 | ED.GENADUL_ITS ---
Discharge Plan Disposition Patient Disposition: Home Discharge Details Clinical Impression: MCL sprain of left knee Primary Care Provider: Neeraj Warren ED Provider: Lamberto Cam Home Meds and New Rx's Prescriptions: No Action esomeprazole magnesium [Nexium] 40 mg capsule,delayed release(DR/EC) 40 mg PO BID zolpidem [Ambien] 10 mg tablet 10 mg PO QHS PRN Discharge Instructions Instructions: Using Cold for Pain, Knee Sprain ED Additional Instructions: Please rest from significant activity over the next 3 days and then you may slowly increase activity as tolerated by pain or discomfort. It is recommended that you use the knee brace for 6 to 8 weeks. You may continue use of [id number] meds for pain control. Return to the emergency department for any new or significant worsening of symptoms otherwise follow-up with your primary care provider in the next 2 weeks if not improving. Due to a delay in radiological interpretation we are discharging you pending results and we will contact you if there is any change to your plan of care based upon the interpretation. Referrals: Neeraj Warren [Primary Care Provider] - 2 weeks (if not improving) Discharge Data Discharge Date/Time-TO BE ENTERED AT DEPARTURE: 03/19/24 10:10 HPI General Mode of arrival: ambulatory . Date/Time Provider Initiated Documentation: 03/19/24 08:19 . Limitations to Documentation: no limitations . Information obtained by: patient and RN notes reviewed . History of Present Illness 39 year old F presents to the emergency department with the chief complaint of Fall with left knee injury, described as moderate, Quality is described as aching, and is localized to the left and lower extremity. Patient reports no radiation. Patient started experiencing this day(s) (1) and it has been constant. Rest improves symptom(s), Movement worsens symptoms . Patient notes no other symptoms.. Patient did receive the following treatments prior to arrival, NSAID Related Data Home Medications ?Medication ?Instructions ?Recorded ?Confirmed esomeprazole magnesium 40 mg 40 mg PO BID 07/26/20 03/19/24 capsule,delayed release (Nexium) zolpidem 10 mg tablet (Ambien) 10 mg PO QHS PRN 07/26/20 03/19/24 Allergies Allergy/AdvReac Type Severity Reaction Status Date / Time kiwi Allergy Intermediate Swelling/Ed Verified 03/19/24 08:24 hermilo penicillin G Allergy Intermediate Hives Verified 03/19/24 08:24 General Stated Complaint: Orthopedic DOUGLAS: 4 Review of Systems Constitutional Constitutional: Denies headache(s) ENT Ears, Nose, Mouth, and Throat: Denies headache(s) Cardiovascular Cardiovascular: Denies syncope Musculoskeletal Musculoskeletal: Reports as per HPI, Denies back pain, Reports arthralgias, Denies numbness and Denies tingling Integumentary/Breasts Skin/Breast: Denies wounds Neurologic Neurologic: Denies syncope, Denies headache(s), Denies numbness and Denies tingling Exam Const General: cooperative, no acute distress and not ill appearing Orientation: alert, awake and oriented x3 HENMT Mouth: moist mucous membranes Resp Effort & Inspection: normal respiratory effort, able to speak in complete sentences and no respiratory distress Skin General skin exam: no rashes or lesions noted Neuro General: patient alert, patient awake, patient oriented x3, moves all extremities and no focal motor deficits Sensory Exam: no sensory deficits noted Extrem General: normal exam except as noted Left lower extremity: knee Details: tenderness Location: of the medial joint line and of the proximal tibia Details: medially, normal ROM and knee ligament exam abnormal Details: valgus stress test Details: pain noted Course Vital Signs Vital signs: Vital Signs Temperature 36.3 C L 03/19/24 08:22 Pulse 82 03/19/24 08:22 Respiratory Rate 20 03/19/24 08:22 Blood Pressure 157/103 H 03/19/24 08:22 Pulse Oximetry 99 03/19/24 08:22 Temperature 36.3 C L 03/19/24 08:22 Temperature Source Temporal Artery Scan 03/19/24 08:22 Pulse 82 03/19/24 08:22 Respiratory Rate 20 03/19/24 08:22 Blood Pressure 157/103 H 03/19/24 08:22 Blood Pressure Position Sitting 03/19/24 08:22 Pulse Oximetry 99 03/19/24 08:22 Oxygen Delivery Method Room Air 03/19/24 08:22 Oxygen Flow Rate 0 03/19/24 08:22 Pain Level 3 03/19/24 08:22 Comment 5 when walking 03/19/24 08:22 Medical Decision Making Patient presenting to the emergency department for chief complaint of left knee injury. Patient states that she fell while taking care of her dog last night. Denies any other injury or trauma, syncope head injury or other emergent review of systems. Patient denies any previous injury of the left knee. States she took Motrin before coming in. Physical exam shows tenderness to the medial joint line and pain with valgus testing along with some tenderness to the proximal tibia otherwise negative exam. Will perform radiological imaging to evaluate for fracture but I have high suspicion of MCL injury. Offered patient NSAIDs which she stated she already took before she came and no meds needed at this time. Reviewed radiological imaging and I see no acute findings of fracture. Radiology read is prolonged so will discharge patient pending results with patient aware that we will contact with any change of plan. After discussion of diagnosis and plan of care patient has no further needs, questions, or concerns and states clear understanding to return to the emergency department for any worsening symptoms. This documentation was generated using [employer]indermintation system, please disregard any oddities of phrase or misspellings. Imaging Data Radiologic Study: Attestation: I personally reviewed and interpreted this imaging study as follows: Imaging: X-Ray My impression: No acute findings suggestive of fracture Radiologist's impression: Exam(s) PROCEDURE INFORMATION: Exam: XR Left Knee Exam date and time: 03/19/2024 9:05 AM Age: 39 years old Clinical indication: Other: Medial trauma TECHNIQUE: Imaging protocol: Radiologic exam of the left knee. Views: 3 views. COMPARISON: No relevant prior studies available. FINDINGS: Bones/joints: There is no evidence of acute fracture.There is no evidence of malalignment or dislocation. Soft tissues: Normal. IMPRESSION: There is no evidence of acute fracture.There is no evidence of malalignment or dislocation. Dictated and Authenticated by: Michaela Wadsworth MD. Ordering:CIARA Orantes MD Quality:SDOH Health Related Social Needs: No Data to Display PFSH All Active Problems (Updated 03/19/24 @ 09:52 by Lamberto Cam NP) MCL sprain of left knee (Acute) Factor 5 Leiden mutation, heterozygous (Acute) IUD surveillance (Acute) Surgical History S/P section x 2 Family History Father Diabetes Hypertension Mother Hypertension Thymic cancer Social History Smoking/Tobacco Use Status: Current every day Tobacco Type: cigarettes Smoking risk assessment performed?: Yes Alcohol Intake: current Alcohol Intake frequency: 0-2 drinks per day Alcohol type: wine Drug use: Occasionally Substance use type: marijuana
--- NOTE | 2024-03-19 09:52 | DI.VRAD_ITS ---
PROCEDURE INFORMATION: Exam: XR Left Knee Exam date and time: 03/19/2024 9:05 AM Age: 39 years old Clinical indication: Other: Medial trauma TECHNIQUE: Imaging protocol: Radiologic exam of the left knee. Views: 3 views. COMPARISON: No relevant prior studies available. FINDINGS: Bones/joints: There is no evidence of acute fracture.There is no evidence of malalignment or dislocation. Soft tissues: Normal. IMPRESSION: There is no evidence of acute fracture.There is no evidence of malalignment or dislocation. Dictated and Authenticated by: Michaela Wadsworth MD. Ordering:CIARA Orantes MD
[2024-03-19 09:56] VITALS: BP 143/88; PULSE 75; RESP 16; O2SAT 98
== END 2024-03-19 10:10 | disposition home or self-care (01) ==
PROVIDERS: Emergency Provider Nurse Practitioner Family; PCP Nurse Practitioner Family
DX: S83.412A Sprain of medial collateral ligament of left knee, initial encounter (principal); W19.XXXA Unspecified fall, initial encounter
CPT/HCPCS: 73562; 99283

== ENCOUNTER 2025-02-09 17:37 | Emergency (ER) | payer OTHER, SELFPAY ==
[2025-02-09] VITALS (30 sets, daily range): BP systolic 142–193; BP diastolic 92–100; PULSE 69–95; RESP 12–32; TEMP 36.3; O2SAT 86–100
--- NOTE | 2025-02-09 17:30 | RT.EKG_ITS ---
APPROVED REPORT Exam: Resting ECG Reason for Exam: chest pain Patient Location: E HR:83 bpm ECG Measurements Heart Rate 83 AXIS ME 147 P 62 QRSd 88 QRS 44 QT 359 T 27 QTc 423 Conclusion Sinus rhythm...normal P axis, V-rate 60- 99 Probable left atrial enlargement...P >50mS, <-0.10mV V1 No STEMI
--- NOTE | 2025-02-09 17:45 | DI.RAD_ITS ---
Exam(s) XR CHEST 2V PA LATERAL EXAM: XR CHEST 2V PA LATERAL CLINICAL HISTORY: Chest pain. TECHNIQUE: 2D digital imaging was performed. COMPARISON: No exams were available for comparison FINDINGS: 2 views: Heart size is normal. The mediastinum is not widened. Lungs are clear. No infiltrates nor pleural effusions. IMPRESSION: No acute pulmonary findings. DATA REPOSITORY: RADIATION DOSE DELIVERED:
[2025-02-09 18:17] LABS: Abs Immature Grans 0.03 10^3/uL (0.0-0.06); HCT 35.2 % (36.0-46.0); HGB 10.6 g/dL (11.2-15.7); Immature Grans % 0.3 %; MCH 22.7 pg (27.0-33.0); MCHC 30.1 % (32.0-36.0); MCV 75 fL (80-95); MPV 10.0 fL (8.0-11.0); Platelet Count 337 10^3/uL (130-400); RBC 4.67 10^6/uL (3.93-5.22); RDW 16.3 % (11.7-14.6); RDW-SD 43.8 fL; WBC 9.84 10^3/uL (4.4-10.8)
[2025-02-09 18:55] LABS: Glucose Negative (Negative)
[2025-02-09] MEDS: ACETAMINOPHEN 1,000 MG/100 ML BAG 400 MG IVPB (19:25)
[2025-02-09 19:29] LABS: Lipase 37 U/L (<53); Magnesium 1.8 mg/dL (1.6-2.6)
[2025-02-09 19:31] LABS: ALT 15 U/L (10-49); AST 19 U/L (<34); Albumin 3.9 g/dL (3.2-5.0); Alkaline Phosphatase 72 U/L (46-116); Anion Gap 9.2 mmol/L (3-11); BUN 14 mg/dL (9-23); Bilirubin, Total 0.6 mg/dL (0.2-1.2); CO2 23.8 mmol/L (20.0-31.0); Calcium 8.9 mg/dL (8.3-10.6); Chloride 107 mmol/L (98-107); Glucose 84 mg/dL (74-106); Potassium 3.6 mmol/L (3.5-5.1); Sodium 140 mmol/L (136-145); Total Protein 7.8 g/dL (5.7-8.2)
[2025-02-09 19:36] LABS: Troponin I < 3 ng/L (<35)
--- NOTE | 2025-02-09 20:00 | W.ED.GENAD ---
Discharge Plan Disposition Patient Disposition: Home Discharge Details Clinical Impression: Atypical chest pain, Elevated BP without diagnosis of hypertension Primary Care Provider: Neeraj Warren ED Provider: Cornel Flower Home Meds and New Rx's Prescriptions: No Action esomeprazole magnesium [Nexium] 40 mg capsule,delayed release(DR/EC) 40 mg PO BID zolpidem [Ambien] 10 mg tablet 10 mg PO QHS PRN Discharge Instructions Instructions: Chest Pain, Adult ED, High Blood Pressure ED Additional Instructions: Your evaluation today for chest pain was reassuring as your lab results were normal, your EKG did not show any signs of heart attack or heart strain, and your CT showed no evidence of blood clots. The pattern of your chest pain is also unlikely to be represented by cardiac causes. However if you are having worsening chest pain, or developing worsening symptoms such as worsening exercise tolerance, shortness of breath with exertion, or any other new or concerning symptoms that would again seek evaluation in the emergency department. Please follow-up with your primary care provider regarding your visit to the emergency department today. Be sure to discuss results of all test performed here today to include radiology, and laboratory testing as well as results for any pending cultures. I would also discuss management your blood pressure. Diagnosing hypertension is not something that can be done in 1 day in the emergency department however from what you have reported I would be concerned that you do have baseline high blood pressure and that would benefit from treatment. Should your symptoms worsen, or if you develop new concerning symptoms, please return immediately emergency department for further evaluation. Stand Alone Forms: Portal Information HPI General Date/Time Provider Initiated Documentation: 02/09/25 17:42. HPI Narrative: MDM/Narrative: 39-year-old female past medical history of factor V Leiden, recent airplane trip, presents for evaluation of chest pain and associated right leg swelling. Vital signs within normal limits. Physical exam otherwise unremarkable. Given patient's comorbidities, although she is PERC negative will consider PE think CT to rule out and although chest pain is atypical, troponins, ekg and screening labs. ED course: Screening labs are within normal limits. EKG shows no acute changes, troponin negative. Although patient has hypertensive here in the emergency department will defer to outpatient management of her blood pressure given there is no obvious endorgan damage at this time. CT scan as there was no PE or any other significant abnormalities. On reassessment patient notes she is feeling better, stable for discharge. Disposition: Home HPI: 39-year-old female presents for evaluation of chest pain described as a burning chest pain which been intermittent over the past several days and not associated with exertion. Patient notes that she does have a history of factor V Leiden, and did take a flight to [place] which is approximately 3 hours long several days ago and also notes right sided leg swelling greater than left which has been a chronic problem however reoccurred recently. ROS: Negative besides as mentioned above Exam: Gen: A&O NAD HEENT: NCAT, EOMI, not icteric. External ears normal. No rhinorrhea. Moist mucous membranes. Neck: Supple, full range of motion, no observable masses, No meningeal sign. Lungs: No Respiratory distress. CV: RRR, no edema. Abdomen: Soft, nondistended, No rebound tenderness. MSK: No joint swelling, no redness. Skin: No rashes, petechiae, lesions. Normal color per patient. Neuro: Normal Gait, Grossly intact. Psych: Appropriate for situation. Rhythm: NSR Rate: 83 Salol: Normal axis Intervals: Normal intervals Other findings: No acute ST segment or T wave changes to suggest acute ischemia. Labs: Laboratory Tests Range/Units 02/09/25 02/09/25 02/09/25 18:07 18:19 18:56 WBC (4.4-10.8) 10^3/uL 9.84 RBC (3.93-5.22) 10^6/uL 4.67 Hgb (11.2-15.7) g/dL 10.6 L Hct (36.0-46.0) % 35.2 L MCV (80-95) fL 75 L MCH (27.0-33.0) pg 22.7 L MCHC (32.0-36.0) % 30.1 L RDW (11.7-14.6) % 16.3 H Plt Count (130-400) 10^3/uL 337 MPV (8.0-11.0) fL 10.0 Immature Gran % % 0.3 Neutrophils % % 67.5 Lymphocytes % % 19.0 Monocytes % % 8.1 Eosinophils % % 4.5 Basophils % % 0.6 Nucleated RBC % (0.0-0.3) % 0.0 Absolute Neutrophils (1.2-6.7) 10^3/uL 6.64 Absolute Lymphocytes (1.2-3.4) 10^3/uL 1.87 Absolute Monocytes (0.1-0.8) 10^3/uL 0.80 Absolute Eosinophils (0.0-0.7) 10^3/uL 0.44 Absolute Basophils (0.0-0.2) 10^3/uL 0.06 Sodium Cancelled 140 Potassium Cancelled 3.6 Chloride Cancelled 107 Carbon Dioxide Cancelled 23.8 Anion Gap Cancelled 9.2 BUN Cancelled 14 Creatinine Cancelled 0.83 Est GFR (CKD-EPI 2020) Cancelled 75.40 Glucose Cancelled 84 Calcium Cancelled 8.9 Magnesium Cancelled 1.8 Total Bilirubin Cancelled 0.6 AST Cancelled 19 ALT Cancelled 15 Alkaline Phosphatase Cancelled 72 Troponin I Cancelled < 3 NT-Pro-B Natriuret Pep Cancelled 108 Total Protein Cancelled 7.8 Albumin Cancelled 3.9 Lipase Cancelled 37 Urine Color (Yellow) Yellow Urine Clarity (Clear) Clear Urine pH (5-8) 5.5 Ur Specific [place] (1.005-1.025) 1.025 Urine Protein (Neg-Trace) mg/dL Negative Urine Ketones (Negative) mg/dL Negative Urine Blood (Negative) Negative Urine Nitrite (Negative) Negative Urine Bilirubin (Negative) Negative Urine Urobilinogen (Up to 0.2) mg/dL 0.2 Ur Leukocyte Esterase (Negative) Negative Urine Glucose (Negative) mg/dL Negative Range/Units 02/09/25 19:58 WBC (4.4-10.8) 10^3/uL RBC (3.93-5.22) 10^6/uL Hgb (11.2-15.7) g/dL Hct (36.0-46.0) % MCV (80-95) fL MCH (27.0-33.0) pg MCHC (32.0-36.0) % RDW (11.7-14.6) % Plt Count (130-400) 10^3/uL MPV (8.0-11.0) fL Immature Gran % % Neutrophils % % Lymphocytes % % Monocytes % % Eosinophils % % Basophils % % Nucleated RBC % (0.0-0.3) % Absolute Neutrophils (1.2-6.7) 10^3/uL Absolute Lymphocytes (1.2-3.4) 10^3/uL Absolute Monocytes (0.1-0.8) 10^3/uL Absolute Eosinophils (0.0-0.7) 10^3/uL Absolute Basophils (0.0-0.2) 10^3/uL Sodium Potassium Chloride Carbon Dioxide Anion Gap BUN Creatinine Est GFR (CKD-EPI 2020) Glucose Calcium Magnesium Total Bilirubin AST ALT Alkaline Phosphatase Troponin I < 3 NT-Pro-B Natriuret Pep Total Protein Albumin Lipase Urine Color (Yellow) Urine Clarity (Clear) Urine pH (5-8) Ur Specific [place] (1.005-1.025) Urine Protein (Neg-Trace) mg/dL Urine Ketones (Negative) mg/dL Urine Blood (Negative) Urine Nitrite (Negative) Urine Bilirubin (Negative) Urine Urobilinogen (Up to 0.2) mg/dL Ur Leukocyte Esterase (Negative) Urine Glucose (Negative) mg/dL Radiology: Accession No. : [id number] Creator : Ahmet Mayo Dictator : Ahmet Mayo Organ Tuner : Proposal Development Manager : Ahmet Mayo Approver2 : Report Date : 02/09/2025 19:16:24 Exam(s) XR CHEST 2V PA LATERAL EXAM: XR CHEST 2V PA LATERAL CLINICAL HISTORY: Chest pain. TECHNIQUE: 2D digital imaging was performed. COMPARISON: No exams were available for comparison FINDINGS: 2 views: Heart size is normal. The mediastinum is not widened. Lungs are clear. No infiltrates nor pleural effusions. IMPRESSION: No acute pulmonary findings. DATA REPOSITORY: RADIATION DOSE DELIVERED: 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 Page 1 of 2 PROCEDURE INFORMATION: Exam: CTA Chest With Contrast Exam date and time: 02/09/2025 19:29 Age: 39 years old Clinical indication: Pain; Chest pressure; Factor 5 leiden, cp and R leg swelling TECHNIQUE: Imaging protocol: Computed tomographic angiography of the chest with contrast. Exam focused on the arteries. 3D rendering (Not supervised by radiologist): MIP and/or 3D reconstructed images were created by the technologist. Radiation optimization: All CT scans at this facility use at least one of these dose optimization techniques: automated exposure control; mA and/or kV adjustment per patient size (includes targeted exams where dose is matched to clinical indication); or iterative reconstruction. Contrast material: [id number]; Contrast volume: 85 ml; Contrast route: INTRAVENOUS (IV); COMPARISON: CR XR CHEST 2V PA LATERAL 02/09/2025 18:30 FINDINGS: Pulmonary arteries: No pulmonary emboli. Aorta: No aortic aneurysm. No aortic dissection. Lungs: Scattered microatelectasis. No airspace consolidation. No suspicious pulmonary nodules or mass lesions. Pleural spaces: No pneumothorax. No pleural effusion. Heart: No cardiomegaly. No pericardial effusion. Esophagus: Moderate dilation of the esophagus containing predominantly fluid and a small amount of debris maximal diameter 57 mm, appears somewhat patulous and tortuous without wall thickening. Lymph nodes: No enlarged lymph nodes. Diaphragm: Tiny hiatal hernia. ADELINA RODRIGEZ Preliminary Radiology Report SPECIAL EDUCATION ITINERANT TEACHER (QA) DISCREPANCY? If there is a discrepancy between the preliminary and final interpretation, please notify [employer] via [email or web address]). If you do not have access to our QA portal, call our QA team at [phone] CONFIDENTIALITY STATEMENT This report is intended only for the use of the referring physician, and only in accordance with law, If you received this in error, call [phone] Page 2 of 2 Gallbladder and biliary ducts: Cholecystectomy. Stomach: Postsurgical changes in stomach partially seen. Bones/joints: No acute fracture. Soft tissues: Prominent subcutaneous fat. No focal soft tissue lesion or collection. IMPRESSION: 1. No pulmonary emboli are seen. 2. Esophageal findings suggesting chronic dysmotility. 3. Incidental findings as described. Thank you for allowing us to participate in the care of your patient. Dictated and Authenticated by: Jackie Angel MD 02/09/2025 8:37 PM Eastern Time ([place] & [place]) Related Data Home Medications ?Medication ?Instructions ?Recorded ?Confirmed esomeprazole magnesium 40 mg 40 mg PO BID 07/26/20 02/09/25 capsule,delayed release (Nexium) zolpidem 10 mg tablet (Ambien) 10 mg PO QHS PRN 07/26/20 02/09/25 Allergies Allergy/AdvReac Type Severity Reaction Status Date / Time kiwi Allergy Intermediate Swelling/Ed Verified 02/09/25 17:44 hermilo penicillin G Allergy Intermediate Hives Verified 02/09/25 17:44 General Stated Complaint: Chest Pain DOUGLAS: 3 Course Vital Signs Vital signs: Vital Signs Pulse 87 02/09/25 17:40 Respiratory Rate 20 02/09/25 17:40 Blood Pressure 193/100 H 02/09/25 17:40 Pulse Oximetry 99 02/09/25 17:40 Pulse 87 02/09/25 17:40 Respiratory Rate 18 02/09/25 18:11 Respiratory Effort Normal, Non-Labored 02/09/25 18:11 Respiratory Depth Normal 02/09/25 18:11 Respiratory Pattern Normal 02/09/25 18:11 Blood Pressure 193/100 H 02/09/25 17:40 Blood Pressure Position Sitting 02/09/25 17:40 Pulse Oximetry 99 02/09/25 17:40 Oxygen Delivery Method Room Air 02/09/25 17:40 Oxygen Flow Rate 0 02/09/25 17:40 Pain Level 4 02/09/25 17:40 Lab/Test Results Lab/Test Results: Laboratory Tests Range/Units 02/09/25 02/09/25 02/09/25 18:07 18:19 18:56 WBC (4.4-10.8) 10^3/uL 9.84 RBC (3.93-5.22) 10^6/uL 4.67 Hgb (11.2-15.7) g/dL 10.6 L Hct (36.0-46.0) % 35.2 L MCV (80-95) fL 75 L MCH (27.0-33.0) pg 22.7 L MCHC (32.0-36.0) % 30.1 L RDW (11.7-14.6) % 16.3 H Plt Count (130-400) 10^3/uL 337 MPV (8.0-11.0) fL 10.0 Immature Gran % % 0.3 Neutrophils % % 67.5 Lymphocytes % % 19.0 Monocytes % % 8.1 Eosinophils % % 4.5 Basophils % % 0.6 Nucleated RBC % (0.0-0.3) % 0.0 Absolute Neutrophils (1.2-6.7) 10^3/uL 6.64 Absolute Lymphocytes (1.2-3.4) 10^3/uL 1.87 Absolute Monocytes (0.1-0.8) 10^3/uL 0.80 Absolute Eosinophils (0.0-0.7) 10^3/uL 0.44 Absolute Basophils (0.0-0.2) 10^3/uL 0.06 Sodium Cancelled 140 Potassium Cancelled 3.6 Chloride Cancelled 107 Carbon Dioxide Cancelled 23.8 Anion Gap Cancelled 9.2 BUN Cancelled 14 Creatinine Cancelled 0.83 Est GFR (CKD-EPI 2020) Cancelled 75.40 Glucose Cancelled 84 Calcium Cancelled 8.9 Magnesium Cancelled 1.8 Total Bilirubin Cancelled 0.6 AST Cancelled 19 ALT Cancelled 15 Alkaline Phosphatase Cancelled 72 Troponin I Cancelled < 3 NT-Pro-B Natriuret Pep Cancelled 108 Total Protein Cancelled 7.8 Albumin Cancelled 3.9 Lipase Cancelled 37 Urine Color (Yellow) Yellow Urine Clarity (Clear) Clear Urine pH (5-8) 5.5 Ur Specific [place] (1.005-1.025) 1.025 Urine Protein (Neg-Trace) mg/dL Negative Urine Ketones (Negative) mg/dL Negative Urine Blood (Negative) Negative Urine Nitrite (Negative) Negative Urine Bilirubin (Negative) Negative Urine Urobilinogen (Up to 0.2) mg/dL 0.2 Ur Leukocyte Esterase (Negative) Negative Urine Glucose (Negative) mg/dL Negative POC- Test(urine) Negative PFSH All Active Problems (Updated 02/09/25 @ 21:21 by Cornel Flower MD) Elevated BP without diagnosis of hypertension (Acute) Atypical chest pain (Acute) Factor 5 Leiden mutation, heterozygous (Acute) IUD surveillance (Acute) Surgical History S/P section x 2 Family History Father Diabetes Hypertension Mother Hypertension Thymic cancer Social History Smoking/Tobacco Use Status: Current every day Tobacco Type: cigarettes Smoking risk assessment performed?: Yes Alcohol Intake: current Alcohol Intake frequency: a few times a month Alcohol type: wine Drug use: Occasionally Substance use type: marijuana Do you feel safe at home: Yes Do you feel safe in your relationship?: Yes
[2025-02-09] MEDS: Omnipaque 350 MG/ML 100 ML BTL IJ (20:20)
[2025-02-09] MEDS: Normal Saline - Diluent 50 ML VIAL IJ (20:21)
[2025-02-09] MEDS: Normal Saline Flush 10 ML SYR IVP (20:21)
--- NOTE | 2025-02-09 20:21 | DI.CT_ITS ---
Exam(s) CT CHEST PE CTA EXAM: CT CHEST PE CTA CLINICAL HISTORY: factor 5 leiden, CP and R leg swelling. TECHNIQUE: Imaging Protocol: Axial CT angiography was performed with multi- slice acquisition and multi-planar reconstructions as well as axial, coronal and sagittal MIP reconstructions. Computer aided detection (CAD) was utilized. CONTRAST MATERIAL: Intravenous: Omnipaque 350 Contrast volume:85 ml COMPARISON: CR XR CHEST 2V PA LATERAL from 02/09/2025 FINDINGS: Pulmonary Arteries: No evidence of filling defect to suggest pulmonary emboli. Mediastinum and Gisselle: The esophagus is markedly distended with fluid throughout. There is no evidence of wall thickening. No visible mass. No dominant adenopathy. Pulmonary parenchyma: No consolidation or dominant measurable mass. Pleura: No effusion or pneumothorax. Heart: The heart is not dilated. No coronary artery calcifications are seen. Aorta: Thoracic aorta non-dilated. No dissection. Upper abdomen: No acute findings. Cholecystectomy. Suture material at stomach. The stomach is not abnormally distended. Bones: Unremarkable for age. Tubes, Catheters, and Lines: None Soft tissues: Unremarkable. IMPRESSION: No evidence of pulmonary embolism. The esophagus is distended with fluid. No visible mass or wall thickening. The findings are likely secondary to chronic dysmotility. The preliminary [facility] report was reviewed. RADIATION DOSE DELIVERED: [facility] DATA REPOSITORY: All CT scans at this facility are submitted to the National Radiology Data Registry (NRDR) Dose Index Registry (DIR) with the [employer] (ACR). RADIATION OPTIMIZATION: All CT scans at this facility use at least one of these dose optimization techniques: automated exposure control; mA and/or kV adjustment per patient size (includes targeted exams where dose is matched to clinical indication); or iterative reconstruction.
[2025-02-09 20:29] LABS: Troponin I < 3 ng/L (<35)
--- NOTE | 2025-02-09 20:37 | DI.[facility]_ITS ---
PROCEDURE INFORMATION: Exam: CTA Chest With Contrast Exam date and time: 02/09/2025 19:29 Age: 39 years old Clinical indication: Pain; Chest pressure; Factor 5 leiden, cp and R leg swelling TECHNIQUE: Imaging protocol: Computed tomographic angiography of the chest with contrast. Exam focused on the arteries. 3D rendering (Not supervised by radiologist): MIP and/or 3D reconstructed images were created by the technologist. Radiation optimization: All CT scans at this facility use at least one of these dose optimization techniques: automated exposure control; mA and/or kV adjustment per patient size (includes targeted exams where dose is matched to clinical indication); or iterative reconstruction. Contrast material: [id number]; Contrast volume: 85 ml; Contrast route: INTRAVENOUS (IV); COMPARISON: CR XR CHEST 2V PA LATERAL 02/09/2025 18:30 FINDINGS: Pulmonary arteries: No pulmonary emboli. Aorta: No aortic aneurysm. No aortic dissection. Lungs: Scattered microatelectasis. No airspace consolidation. No suspicious pulmonary nodules or mass lesions. Pleural spaces: No pneumothorax. No pleural effusion. Heart: No cardiomegaly. No pericardial effusion. Esophagus: Moderate dilation of the esophagus containing predominantly fluid and a small amount of debris maximal diameter 57 mm, appears somewhat patulous and tortuous without wall thickening. Lymph nodes: No enlarged lymph nodes. Diaphragm: Tiny hiatal hernia. Gallbladder and biliary ducts: Cholecystectomy. Stomach: Postsurgical changes in stomach partially seen. Bones/joints: No acute fracture. Soft tissues: Prominent subcutaneous fat. No focal soft tissue lesion or collection. IMPRESSION: 1. No pulmonary emboli are seen. 2. Esophageal findings suggesting chronic dysmotility. 3. Incidental findings as described. Dictated and Authenticated by: Jackie Angel MD. Orderin Ching Unger MD
== END 2025-02-09 21:21 | disposition home or self-care (01) ==
LOC: ER 21:29
PROVIDERS: Emergency Provider General Practice; PCP Nurse Practitioner Family
DX: R07.89 Other chest pain (principal); R03.0 Elevated blood-pressure reading, without diagnosis of hypertension
CPT/HCPCS: 36415; 71275; 80053; 81025; 83690; 93005; 96365; 99285; 71046; 81003; 83735; 83880; 84484; 85025; 93010; 99284; J0131; J3490